=== PATIENT | female | born 1995 | race American Indian/Alaskan Native ===

== ENCOUNTER 2017-03-08 22:59 | Emergency (ER) | payer BC ==
[2017-03-08] MEDS ORDERED: PERCOCET 5/325 PO ONE (23:40)
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
[2017-03-09 01:59] LABS: Basophils % (Auto) 0.9 % (0.0-1.8); Eosinophils % (Auto) 4.3 % (0.0-4.3); Hematocrit 33.5 % (30.3-42.9); Hemoglobin 11.2 gm/dl (10.1-14.3); Mean Corpuscular HGB Conc 34 % (30-34); Mean Corpuscular Hemoglobin 27 pg (28-32); Mean Corpuscular Volume 81 fl (79-97); Platelet Count 259 K/mm3 (140-440); Red Blood Count 4.13 M/mm3 (3.65-5.03); Red Cell Distribution Width 14.3 % (13.2-15.2); White Blood Count 4.7 K/mm3 (4.5-11.0)
[2017-03-09 02:29] LABS: Anion Gap 17 mmol/L; BUN/Creatinine Ratio 18.57; Blood Urea Nitrogen 13 mg/dL (7-17); Calcium 9.1 mg/dL (8.4-10.2); Carbon Dioxide 24 mmol/L (22-30); Chloride 102.4 mmol/L (98-107); Creatine Kinase 291 units/L (30-135); Glucose 102 mg/dL (65-100); Potassium 3.7 mmol/L (3.6-5.0); Sodium 140 mmol/L (137-145)
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
[2017-03-09 04:43] LABS: Urine Drugs of Abuse Note Disclamer
[2017-03-09 05:29] LABS: Bacteria,Urine 1+ /HPF (Negative); Bilirubin,Urine NEG (Negative); Blood,Urine NEG (Negative); Ketones,Urine NEG (Negative); Leukocyte Esterase,Urine NEG (Negative); Mucus,Urine FEW /HPF; Nitrite,Urine NEG (Negative); Protein,Urine <15 mg/dL mg/dL (Negative); Urobilinogen,Urine < 2.0 mg/dL (<2.0)
--- NOTE | 2017-03-09 06:23 | Cat Scan Report ---
FINAL REPORT PROCEDURE: CT LUMBAR SPINE WO CON TECHNIQUE: Computerized axial tomography of the lumbar spine was performed from T12 to the sacrum without contrast material. HISTORY: Trouble walking, LE weakness COMPARISON: No prior studies are available for comparison. FINDINGS: The alignment of the vertebral segments is normal. No acute fracture or dislocation. The spinal canal is adequate at all levels.. IMPRESSION: Normal CT lumbar spine
--- NOTE | 2017-03-09 06:33 | Cat Scan Report ---
FINAL REPORT PROCEDURE: CT THORACIC SPINE WO CON TECHNIQUE: Computerized axial tomography of the thoracic spine was performed from C7 - L1 without contrast material. HISTORY: Trouble walking, LE weakness COMPARISON: No prior studies are available for comparison. FINDINGS: The alignment of the vertebral segments is normal. No acute fracture or dislocation. The heights of the vertebral bodies and the disc spaces are maintained. The spinal canal is adequate at all levels. IMPRESSION: Normal CT thoracic spine
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
--- NOTE | 2017-03-09 09:03 | XRay Report ---
X-RAY RIGHT FEMUR TWO VIEWS: 03/08/17 22:59:00 CLINICAL: Trauma and pain. FINDINGS: Normal alignment at the hip and knee. No fracture. Normal soft tissues. IMPRESSION: Normal.
--- NOTE | 2017-03-09 09:33 | Magnetic Resonance Report ---
MRI BRAIN WITHOUT CONTRAST: 03/09/17 CLINICAL: Lower extremity weakness. TECHNIQUE: Axial diffusion, T1, T2, FLAIR, gradient echo T2*, coronal and sagittal T1 sequences on a 1.5 Charity magnet. FINDINGS: Normal ventricles and sulci. No restricted diffusion. No mass or mass effect. No hemorrhage, edema or extra-axial collection. Normal pituitary and optic chiasm. The brainstem and cerebellum are normal. Intact vascular flow voids. Normal sinuses. The orbits, and soft tissues are normal. Normal calvarium and skull base. The cerebellar tonsils are in normal position in the upper spinal cord is unremarkable. IMPRESSION: Normal study.
--- NOTE | 2017-03-09 09:37 | Magnetic Resonance Report ---
MRI THORACIC SPINE WITHOUT CONTRAST: 03/09/17 CLINICAL: Lower extremity weakness. TECHNIQUE: Sagittal and axial T1 and T2, and sagittal STIR sequences on a 1.5 Charity magnet. FINDINGS: Normal vertebral body height, alignment and disk spaces. Normal marrow signal are normal disk signal. The spinal cord is normal size with normal signal. No cord lesion. The conus medullaris is normal and terminates at L1. The disks are intact at all levels. No disk protrusions or bulges. IMPRESSION: Normal study.
--- NOTE | 2017-03-09 09:48 | Magnetic Resonance Report ---
MRI CERVICAL SPINE WITHOUT CONTRAST: 03/09/17 08:29 CLINICAL: Lower extremity weakness. TECHNIQUE: Sagittal T1,T2 and STIR and axial T2 and axial gradient T2* sequences on a 1.5 Charity magnet. FINDINGS:Congenital anomaly with the C4 and C5 vertebral bodies smaller than usual size and the C6 vertebral body slightly smaller than usual size. Normal vertebral body alignment. Straightening of the C-spine with loss of some cervical lordosis. The discs are intact at all levels. Prominent anterior and posterior osteophytes at C5 and C6. The overall marrow signal is normal and the disc signal is normal. The spinal cord is normal size with normal signal. No cord lesion. The cerebellar tonsils are in normal position. C2-3: Intact. C3-4:Intact. C4-5: Intact disc. Left uncal osteophyte, left facet hypertrophy and mild left neural foraminal narrowing. C5-6:Mild circumferential bulge of the disc. A broad-based central disc-osteophyte complex produces partial effacement of the thecal sac but no cord compression. No neural foraminal stenosis. C6-7:Intact. C7-T1:Intact. IMPRESSION: 1. 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 2. Mild spinal canal stenosis at C5-6 produced by a broad-based central disc-osteophyte. 3. No cord compression and no cord lesion.
--- NOTE | 2017-03-09 09:55 | Magnetic Resonance Report ---
MRI LUMBAR SPINE WITHOUT CONTRAST: 03/09/17 CLINICAL: Lower extremity weakness. TECHNIQUE: Sagittal and axial T1 and T2, and sagittal STIR sequences on a 1.5 Charity magnet. FINDINGS: Normal vertebral body height, alignment and disc spaces. Normal marrow signal and normal disc signal. The conus medullaris is normal and terminates at T12-L1. L1-2: Intact. L2-3: Intact. L3-4: Intact. L4-5: Mild circumferential disc bulge and mild bilateral facet hypertrophy. Mild bilateral neural foraminal narrowing. L5-S1: Mild circumferential disc bulge and mild bilateral facet hypertrophy, slightly greater on the left than the right. Mild left neural foraminal narrowing. IMPRESSION: Mild degenerative change with mild disc bulges and mild neural foraminal narrowing at L4-5 and L5-S1.
[2017-03-09 11:37] VITALS: BP 118/68
== END 2017-03-09 11:37 | disposition home or self-care (01) ==
LOC: ED 03-09 02:04
DX: M79.604 Pain in right leg (principal); M79.605 Pain in left leg; R51 Headache; V89.2XXA Person injured in unspecified motor-vehicle accident, traffic, initial encounter; Y93.9 Activity, unspecified; Y92.9 Unspecified place or not applicable; Y99.9 Unspecified external cause status
CPT/HCPCS: 36415; 70450; 70551; 72125; 72128; 72131; 72141; 72146; 72148; 72170; 80048; 80307; 81001; 82550; 83735; 84703; 85025

== ENCOUNTER 2020-03-30 16:16 | Emergency (ER) | payer BC ==
[2020-03-30] MEDS ORDERED: SODIUM CHLORIDE 0.9% 1000 ML IV SOLN IV ONE (17:21)
--- NOTE | 2020-03-30 17:23 | Emergency Department Report ---
Blank Doc - Documentation Documentation: 24-year-old female that presents with right flank pain, fever, chills, nausea, and body aches. Patient is 14 weeks . Denies any vaginal bleeding or pelvic/abdominal pain. Pt taken Tylenol COMB TENDER. 130 tachycardia in triage. This initial assessment/diagnostic orders/clinical plan/treatment(s) is/are subject to change based on patient's health status, clinical progression and re- assessment by fellow clinical providers in the ED. Further treatment and workup at subsequent clinical providers discretion. Patient/guardians urged not to elope from the ED as their condition may be serious if not clinically assessed and managed. Initial orders include: 1- Patient sent to [facility] for further evaluation and treatment 2- sepsis workup Code sepsis initiated
[2020-03-30] MEDS ORDERED: cefTRIAXone/NS 1 GM/50 ML 1 GM/50 ML BAG IV SCH (18:00)
[2020-03-30 18:04] LABS: Alanine Aminotransferase 11 units/L (7-56); Albumin 3.9 g/dL (3.9-5); Blood Urea Nitrogen 6 mg/dL (7-17); Calcium 9.6 mg/dL (8.4-10.2); Hemolysis Index 0
[2020-03-30 18:06] LABS: Hematocrit 32.1 % (30.3-42.9); Hemoglobin 10.6 gm/dl (10.1-14.3); Mean Corpuscular HGB Conc 33 % (30-34); Mean Corpuscular Volume 82 fl (79-97); Platelet Count 260 K/mm3 (140-440); Red Blood Count 3.92 M/mm3 (3.65-5.03); Red Cell Distribution Width 13.5 % (13.2-15.2)
[2020-03-30 18:19] LABS: BUN/Creatinine Ratio 10
[2020-03-30 19:21] LABS: Eosinophils # (Auto) 0.1 K/mm3 (0.0-0.4); Monocytes # (Auto) 1.7 K/mm3 (0.0-0.8)
[2020-03-30 19:29] LABS: Basophils % (Manual) 0 % (0.0-1.8); RBC Morphology Normal; Total Cells Counted 100
[2020-03-30] MEDS ORDERED: ETOMIDATE 20 MG/10 ML INJ IV ONE (19:58)
[2020-03-30] MEDS ORDERED: ROCURONIUM 50 MG/5 ML INJ IV ONE (19:58)
[2020-03-30 20:51] LABS: Bacteria,Urine 1+ /HPF (Negative); Bilirubin,Urine NEG (Negative); Blood,Urine MOD (Negative); Color,Urine Amber (Yellow); Mucus,Urine 3+ /HPF
[2020-03-30] MEDS ORDERED: cefTRIAXone/NS 2 GM/100 ML 2 GM/100 ML BAG IV ONE (22:42)
[2020-03-30] MEDS ORDERED: ACETAMINOPHEN 500 MG TAB PO STA (23:12)
--- NOTE | 2020-03-30 23:12 | Emergency Department Report ---
ED Female HPI - General Chief complaint: Urogenital-Female Stated complaint: UTI Time Seen by Provider: 03/30/20 17:18 Source: patient Mode of arrival: Ambulatory Limitations: No Limitations - History of Present Illness Initial comments: CC: "I have a really bad urinary tract infection." HPI: THis is a 24 yo female estimated due date September 22, 2020 she presents with right flank pain since Friday. She was evaluated by practitioner at her primary [facility] practice [facility]. Diagnosed with UTI. Given Macrobid. Patient still has back pain fever generalized malaise. Moderate dull pain at the right flank. MD Complaint: other (Right flank pain fever) -: Gradual, days(s) (5) Radiation: R flank Severity: moderate Severity scale (0 -10): 7 Quality: dull Consistency: constant Improves with: none Worsens with: none Are you Now?: Yes Associated Symptoms: fever/chills, other (Right flank pain) - Related Data Previous Rx's Medication Instructions Recorded Last Taken Type Metaxalone [Skelaxin] 800 mg PO TID #30 tablet 03/09/17 Unknown Rx Naproxen [Naprosyn] 500 mg PO BID #14 tablet 03/09/17 Unknown Rx cephALEXin [Keflex] 500 mg PO TID 7 Days #21 cap 03/31/20 Unknown Rx Allergies Allergy/AdvReac Type Severity Reaction Status Date / Time No Known Allergies Allergy Verified 03/08/17 23:48 ED Review of Systems ROS: Stated complaint: UTI Other details as noted in HPI Comment: All other systems reviewed and negative Constitutional: fever, malaise Respiratory: denies: cough, shortness of breath Gastrointestinal: denies: abdominal pain, nausea, vomiting Musculoskeletal: back pain ED Past Medical Hx - Past Medical History Previous Medical History?: No - Surgical History Past Surgical History?: No - Social History Smoking Status: Never Smoker Substance Use Type: None - Medications Home Medications: Home Medications Medication Instructions Recorded Confirmed Last Taken Type Metaxalone [Skelaxin] 800 mg PO TID #30 tablet 03/09/17 Unknown Rx Naproxen [Naprosyn] 500 mg PO BID #14 tablet 03/09/17 Unknown Rx cephALEXin [Keflex] 500 mg PO TID 7 Days #21 cap 03/31/20 Unknown Rx ED Physical Exam - General Limitations: No Limitations General appearance: alert, in no apparent distress - Head Head exam: Present: atraumatic, normocephalic - Eye Eye exam: Present: normal appearance - ENT ENT exam: Present: mucous membranes moist - Neck Neck exam: Present: normal inspection, full ROM. Absent: tenderness, meningismus - Respiratory Respiratory exam: Present: normal lung sounds bilaterally. Absent: respiratory distress, wheezes, rales, rhonchi - Cardiovascular Cardiovascular Exam: Present: normal rhythm, tachycardia, normal heart sounds. Absent: systolic murmur, diastolic murmur, rubs, gallop - GI/Abdominal GI/Abdominal exam: Present: soft, normal bowel sounds. Absent: distended, tenderness, guarding, rebound - Extremities Exam Extremities exam: Present: normal inspection - Back Exam Back exam: Present: full ROM, CVA tenderness (R) - Neurological Exam Neurological exam: Present: alert, oriented X3 - Psychiatric Psychiatric exam: Present: normal affect, normal mood - Skin Skin exam: Present: warm, dry, intact, normal color. Absent: rash ED Course Vital Signs 03/30/20 17:18 Temperature 99.4 F Pulse Rate 130 H Respiratory 20 Rate Blood Pressure 121/79 [Left] O2 Sat by Pulse 98 Oximetry ED Medical Decision Making - Lab Data Result diagrams: 03/30/20 17:25 03/30/20 17:25 Laboratory Results - last 24 hr 03/30/20 03/30/20 03/30/20 17:25 17:25 17:25 WBC 9.5 RBC 3.92 Hgb 10.6 Hct 32.1 MCV 82 MCH 27 L MCHC 33 RDW 13.[address] [place] [facility] % (Auto) Retirement Benefits Specialist Eos % (Auto) Retirement Benefits Specialist [facility] # 1.7 H Eos # 0.1 Baso # 0.0 Add Manual Diff Complete Total Counted 100 Seg Neutrophils % Retirement Benefits Specialist Seg Neuts % (Manual) 66.0 Band Neutrophils % 0 Lymphocytes % (Manual) 15.0 Reactive Lymphs % (Man) 0 Monocytes % (Manual) 18.0 H Eosinophils % (Manual) 1.0 Basophils % (Manual) 0 Metamyelocytes % 0 Myelocytes % 0 Promyelocytes % 0 Blast Cells % 0 Nucleated RBC % Not Reportable Seg Neutrophils # 7.0 Seg Neutrophils # Man 6.3 Band Neutrophils # 0.0 Lymphocytes # (Manual) 1.4 Abs React Lymphs (Man) 0.0 Monocytes # (Manual) 1.7 H Eosinophils # (Manual) 0.1 Basophils # (Manual) 0.0 Metamyelocytes # 0.0 Myelocytes # 0.0 Promyelocytes # 0.0 Blast Cells # 0.0 WBC Morphology Not Reportable Hypersegmented Neuts Not Reportable Hyposegmented Neuts Not Reportable Hypogranular Neuts Not Reportable Smudge Cells Not Reportable Toxic Granulation Not Reportable Toxic Vacuolation Not Reportable Dohle Bodies Not Reportable Pelger-Huet Anomaly Not Reportable Eduarda Rods Not Reportable Platelet Estimate Not Reportable Clumped Platelets Not Reportable Plt Clumps, EDTA Not Reportable Large Platelets Not Reportable Giant Platelets Not Reportable Platelet Satelliting Not Reportable Plt Morphology Comment Not Reportable RBC Morphology Normal Dimorphic RBCs Not Reportable Polychromasia Not Reportable Hypochromasia Not Reportable Poikilocytosis Not Reportable Anisocytosis Not Reportable Microcytosis Not Reportable Macrocytosis Not Reportable Spherocytes Not Reportable Pappenheimer Bodies Not Reportable Sickle Cells Not Reportable Target Cells Not Reportable Tear Drop Cells Not Reportable Ovalocytes Not Reportable Helmet Cells Not Reportable Villatoro-[place] Bodies Not Reportable [place] Rings Not Reportable Lesley Cells Not Reportable Bite Cells Not Reportable Crenated Cell Not Reportable Elliptocytes Not Reportable Acanthocytes (Spur) Not Reportable Rouleaux Not Reportable Hemoglobin C Crystals Not Reportable Schistocytes Not Reportable Malaria parasites Not Reportable Gregorio Bodies Not Reportable Hem Pathologist Commnt No Sodium 137 Potassium 3.4 L Chloride 94.6 L Carbon Dioxide 25 Anion Gap 21 BUN 6 L Creatinine 0.6 Estimated GFR > 60 BUN/Creatinine Ratio 10 Glucose 96 Lactic Acid 0.90 Calcium 9.6 Total Bilirubin 0.60 AST 19 ALT 11 Alkaline Phosphatase 63 Total Protein 7.5 Albumin 3.9 Albumin/Globulin Ratio 1.1 HCG, Quant Urine Color Urine Turbidity Urine pH Ur Specific [place] Urine Protein Urine Glucose (UA) Urine Ketones Urine Blood Urine Nitrite Urine Bilirubin Urine Urobilinogen Ur Leukocyte Esterase Urine WBC (Auto) Urine RBC (Auto) U Epithel Cells (Auto) Urine Bacteria (Auto) Urine Mucus 03/30/20 03/30/20 03/30/20 17:25 20:58 Unknown WBC RBC Hgb Hct MCV MCH MCHC RDW Plt Count [facility] % (Auto) Eos % (Auto) [facility] # Eos # Baso # Add Manual Diff Total Counted Seg Neutrophils % Seg Neuts % (Manual) Band Neutrophils % Lymphocytes % (Manual) Reactive Lymphs % (Man) Monocytes % (Manual) Eosinophils % (Manual) Basophils % (Manual) Metamyelocytes % Myelocytes % Promyelocytes % Blast Cells % Nucleated RBC % Seg Neutrophils # Seg Neutrophils # Man Band Neutrophils # Lymphocytes # (Manual) Abs React Lymphs (Man) Monocytes # (Manual) Eosinophils # (Manual) Basophils # (Manual) Metamyelocytes # Myelocytes # Promyelocytes # Blast Cells # WBC Morphology Hypersegmented Neuts Hyposegmented Neuts Hypogranular Neuts Smudge Cells Toxic Granulation Toxic Vacuolation Dohle Bodies Pelger-Huet Anomaly Eduarda Rods Platelet Estimate Clumped Platelets Plt Clumps, EDTA Large Platelets Giant Platelets Platelet Satelliting Plt Morphology Comment RBC Morphology Dimorphic RBCs Polychromasia Hypochromasia Poikilocytosis Anisocytosis Microcytosis Macrocytosis Spherocytes Pappenheimer Bodies Sickle Cells Target Cells Tear Drop Cells Ovalocytes Helmet Cells Villatoro-[place] Bodies [place] Rings [place] Cells Bite Cells Crenated Cell Elliptocytes Acanthocytes (Spur) Rouleaux Hemoglobin C Crystals Schistocytes Malaria parasites Gregorio Bodies Hem Pathologist Commnt Sodium Potassium Chloride Carbon Dioxide Anion Gap BUN Creatinine Estimated GFR BUN/Creatinine Ratio Glucose Lactic Acid 0.80 Calcium Total Bilirubin AST ALT Alkaline Phosphatase Total Protein Albumin Albumin/Globulin Ratio HCG, Quant 11354 H Urine Color Misti Urine Turbidity Slightly-cloudy Urine pH 6.0 Ur Specific [place] 1.019 Urine Protein 100 mg/dl Urine Glucose (UA) Neg Urine Ketones 80 Urine Blood Mod Urine Nitrite Neg Urine Bilirubin Neg Urine Urobilinogen 2.0 Ur Leukocyte Esterase Sm Urine WBC (Auto) 31.0 H Urine RBC (Auto) 30.0 U Epithel Cells (Auto) 22.0 H Urine Bacteria (Auto) 1+ Urine Mucus 3+ - Medical Decision Making Acute pyelonephritis, second trimester . Patient received IV ceftria xone. I have discontinued her Macrobid antibiotic. I have changed antibiotics to cephalexin. Patient will follow-up next available appointment 04/05/2020 with her primary airplane tester. She understands return for severe pain, vomiting malaise or any new symptoms. Critical care attestation.: If time is entered above; I have spent that time in minutes in the direct care of this critically ill patient, excluding procedure time. ED Disposition Clinical Impression: Acute pyelonephritis in second trimester, antepartum Disposition: TO HOME OR SELFCARE Is pt being admited?: No Does the pt Need Aspirin: No Condition: Stable Instructions: Acute Pyelonephritis (ED) Prescriptions: cephALEXin [Keflex] 500 mg PO TID 7 Days #21 cap Referrals: PRIMARY CARE, [Primary Care Provider] - 3-5 Days
[2020-03-30] MEDS ORDERED: SODIUM CHLORIDE 0.9% 1000 ML 2,000 ML ONE (23:19)
[2020-03-31 01:59] VITALS: BP 117/72
== END 2020-03-31 01:58 | disposition home or self-care (01) ==
LOC: ED 16:16
DX: O23.02 Infections of kidney in pregnancy, second trimester (principal); Z79.899 Other long term (current) drug therapy; Z3A.15 15 weeks gestation of pregnancy
CPT/HCPCS: 36415; 80053; 81001; 82140; 84702; 85007; 85025; 87040; 87086; 96365; 99283; J0696; J7030